=== PATIENT | female | born 1975 | race Caucasian/White ===

== ENCOUNTER 2018-08-13 21:53 | Emergency (ER) | payer OTHER ==
[2018-08-13] MEDS ORDERED: ONDANSETRON 4 MG/2 ML VIAL IVP ONE (22:05)
[2018-08-13] MEDS ORDERED: NS 1,000 ML IV ONE (22:05)
--- NOTE | 2018-08-13 22:35 | CPEKG ---
Test Reason : OPEN Blood Pressure : / mmHG Vent. Rate : 072 BPM Atrial Rate : 072 BPM P-R Int : 165 ms QRS Dur : 090 ms QT Int : 374 ms P-R-T Axes : 063 044 035 degrees QTc Int : 410 ms Sinus rhythm Probable left atrial enlargement Confirmed by John Mack ([id number]) on 08/13/2018 10:34:24 PM Referred By: Confirmed By:John Mack
--- NOTE | 2018-08-13 22:41 | EDPHY ---
H & P Stated Complaint: syncope Time Seen by Provider: 08/13/18 22:28 HPI/ROS: HPI The patient presents with an episode of ALOC which occurred just prior to arrival. She has a history of recurrent vasovagal syncope. She was sitting at a restaurant eating dinner with her when she began to feel very hot. She then felt the room spinning and told him that she was going to pass out. He lowered her to the ground but she did lose consciousness for about 20 sec. She felt better after lying on the ground and went to sit up but then had a 2nd episode. She was brought in by ambulance. She now feels well. She did not have any preceding shortness of breath, palpitations, chest pain. She is visiting from [place]. She has had workup including tilt-table test for syncope previously. Workups have been unremarkable and she has been diagnosed with vasovagal syncope. She does not have any medication changes REVIEW OF SYSTEMS 10 systems were reviewed and negative with the exception of the elements mentioned in the history of present illness. PMHx: Hypothyroidism, on OCPs Soc Hx: Visiting from [place], here with her PHYSICAL General Appearance: Alert, no distress Eyes: Pupils equal and round no pallor or injection ENT, Mouth: Mucous membranes moist Respiratory: There are no retractions, lungs are clear to auscultation Cardiovascular: Regular rate and rhythm Gastrointestinal: Abdomen is soft and non-tender, no masses, bowel sounds normal Neurological: A&O, moves all extremities Skin: Warm and dry, no rashes Musculoskeletal: Neck is supple non tender Extremities: symmetrical, full range of motion Psychiatric: Patient is oriented X 3, there is no agitation Source: Patient Exam Limitations: No limitations - Personal History Current Tetanus/Diphtheria Vaccine: No Current Tetanus Diphtheria and Acellular Pertussis (TDAP): No - Medical/Surgical History Hx Asthma: No Hx Chronic Respiratory Disease: No Hx Diabetes: No Hx Cardiac Disease: No Hx Renal Disease: No Hx Cirrhosis: No Hx Alcoholism: No Hx HIV/AIDS: No Hx Splenectomy or Spleen Trauma: No Other PMH: appy, thyroid cancer, cholecystectomy - Social History Smoking Status: Never smoked Constitutional: Initial Vital Signs Temperature (C) 36.6 C 08/13/18 21:57 Heart Rate 78 08/13/18 21:57 Respiratory Rate 16 08/13/18 21:57 Blood Pressure 102/57 L 08/13/18 21:57 O2 Sat (%) 95 08/13/18 21:57 O2 Delivery Mode Room Air Allergies/Adverse Reactions: Penicillins Allergy (Verified 08/13/18 21:59) Home Medications: Medication Instructions Recorded Reclipsen 28 Day Tablet 08/13/18 Medical Decision Making - Diagnostics EKG Interpretation: EKG: Complete interpretation has been separately recorded in the [email or web address] archive. Summary impression: Normal sinus rhythm Differential Diagnosis: This is a 42-year-old female with history of vasovagal syncope presents with an episode of ALOC which occurred just prior to arrival while seated at a restaurant with preceding feeling of flushing and diaphoresis with dizziness. Sounds by history to be vasovagal event. Blood pressure slightly low though has a history of this. The emergency department, EKG was performed which demonstrated a normal sinus rhythm. On the cardiac/vascular sonographer she remained in normal sinus without any arrhythmia as. She received a L of fluid. She was able to walk around the emergency department without any difficulty. She was discharged home. Differential diagnoses considered include arrhythmia, vasovagal event, hypoglycemia. - Data Points Medications Given: Discontinued Medications Sodium Chloride (Ns) 1,000 mls @ 0 mls/hr IV EDNOW ONE; Wide Open PRN Reason: Protocol Stop: 08/13/18 22:06 Last Admin: 08/13/18 22:05 Dose: 1,000 mls Ondansetron HCl (Zofran) 4 mg IVP EDNOW ONE Stop: 08/13/18 22:06 Last Admin: 08/13/18 22:23 Dose: 4 mg Departure - Departure Disposition: Home, Routine, Self-Care Clinical Impression: Syncope Qualifiers: Syncope type: vasovagal syncope Qualified Code(s): R55 - Syncope and collapse Condition: Good Instructions: Syncope (ED) Additional Instructions: Please make sure to drink plenty of fluids throughout the day tomorrow. You should return to the emergency department if your worse in any way. Referrals: Sae Silver MD [Medical Doctor] - As per Instructions
[2018-08-13 23:20] VITALS: BP 110/74
== END 2018-08-13 23:20 | disposition home or self-care (01) ==
LOC: EDSEX 21:53
DX: R55 Syncope and collapse (principal); E86.9 Volume depletion, unspecified
CPT/HCPCS: 96374; J2405